=== PATIENT | female | born 1995 | race Caucasian/White ===

== ENCOUNTER 2017-10-28 16:44 | Emergency (ER) | payer OTHER ==
[~2017-10-28] VITALS: Ht 157.5 cm; Wt 60.3 kg
[~2017-10-28 16:44] MED LIST: DOXYCYCLINE100 MG PO; FLEXERIL10 MG PO; VIBRAMYCIN 100100 MG PO
[2017-10-28 17:04] VITALS: BP 111/77
--- NOTE | 2017-10-28 17:52 | ED THROAT/DENTAL COMPLAINT ---
History of Present Illness General Chief Complaint: General Adult Stated Complaint: ?STREP THROAT Source: patient, old records Exam Limitations: no limitations Vital Signs & Intake/Output Vital Signs & Intake/Output Vital Signs Date Time Temp Pulse Resp B/P B/P Pulse O2 O2 Flow FiO2 Mean Ox Delivery Rate 10/28 1704 97.6 89 20 111/77 97 Room Air Allergies Coded Allergies: No Known Allergies (10/28/17) Reconcile Medications Amoxicillin/Potassium Clav (Augmentin 875-125 Tablet) 875 MG-125 MG TABLET 1 TAB PO BID PHARYNGITIS CYCLOBENZAPRINE HCL (Flexeril) 10 MG TAB 1 TAB PO TID PRN PAIN Avoid operating motor vehicle or heavy machinery Doxycycline (Vibramycin 100 MG Cap) 100 MG CAP 1 TAB PO BID INFN Doxycycline Hyclate 100 MG CAP 1 TAB PO BID INFECTION Triage Note: TRIAGE: PT TO ER C/C SORE THROAT AND HEADACHE PAIN, ONSET THIS MORNING. STEP MOTHER HAS STREP THROAT. PRAVEEN CAMEJO AT TRIAGE FOR EVALUATION. THROAT CULTURE OBTAINED/SENT FROM TRIAGE. Triage Nurses Notes Reviewed? yes Onset: Abrupt Duration: day(s): (2), constant Timing: single episode today Injury Environment: home Severity: mild Severity Numbers: 3 No Modifying Factors: none Associated Symptoms: denies : No Patient currently breastfeeds: No HPI: 22-year-old female presents to ER complaining of a sore throat since this morning. No cough fever chills. Family member is home sick with strep throat and a sinus infection. She just returned from [place]. No difficulty swallowing no difficulty breathing no abdominal pain nausea vomiting diarrhea she is not taken anything for symptoms (Jean Campa) Past History Travel History Traveled to [place] past 21 day No Medical History Any Pertinent Medical History? see below for history Neurological: CONCUSSIONS EENT: NONE Cardiovascular: NONE Respiratory: NONE Gastrointestinal: NONE Hepatic: NONE Renal: NONE Musculoskeletal: NONE Psychiatric: NONE Endocrine: NONE Blood Disorders: NONE Cancer(s): NONE GANG SAWYER/Reproductive: NONE Surgical History Surgical History: N Psychosocial History What is your primary language Serbian Tobacco Use: Never used ETOH Use: occasional use Illicit Drug Use: denies illicit drug use Family History Hx Contributory? No (Jean Campa) Review of Systems Review of Systems Constitutional: Reports: see HPI. All Other Systems: Reviewed and Negative Comments Review of systems: See HPI, All other systems negative. Constitutional, no chills no fever, HEENT: sore throat no congestion, no ear pain Cardiovascular: No chest pain , no palpitation Skin: no rashes, no change in skin Respiratory: No dyspnea no cough no sputum GI: No nausea no vomiting, Muscle skeletal: No joint pain, no back pain Neurologic: , no headache .Heme/endocrine: No bruising Immunology: No lymphadenopathy (Jean Campa) Physical Exam Physical Exam General Appearance: well developed/nourished, no apparent distress, alert, awake Mouth/Throat: PHARYNGEAL ERYTHEMA Comments: Well-developed well-nourished patient in no apparent distress. Head/Face: Atraumatic, no maxillary/frontal sinus tenderness, no facial swelling Eyes: PERRL, EOMI, no conjunctival injection. Ear:External auditory canal and Tympanic membranes clear, no erythema Nose: atraumatic.Normal inspection: Throat: Moist mucous membranes.Pharynx normal. MILD pharyngeal erythema, NO exudate seen. No stridor/drooling or assymetry. No swelling or edema. Neck: Supple, no lymphadenopathy, FROM Back: FROM Cardiovascular: Regular rate and rhythms no murmur Respiratory: No respiratory distress. Patient speaking in full complete sentences. Breath sounds clear to auscultation bilaterally: NO W/R/R Extremities: full range of motion Neuro: awake, alert, and oriented to person, place and time. There were no obvious focal neurologic abnormalities. Skin: Warm & dry;No appreciable rash on exposed skin Psych: Mood affect normal, normal memory normal judgment. Core Measures ACS in differential dx? No Sepsis Present: No Sepsis Focused Exam Completed? No (Jean Campa) Progress Differential Diagnosis: epiglottitis, odontogenic abscess, loreta-tonsillar abscess, strep pharyngitis, MONO Plan of Care: Orders Procedure Date/time Status THROAT CULTURE W/QUICK STREP 10/28 1648 Active I discussed with the patient at length all of their results. I had an extensive conversation regarding need for close follow up with their primary care physician this week as well as return precautions. I answered all of their questions, they feel comfortable with the plan and follow-up care. I discussed with the patient/family the medications that they will receive. I gave them signs and symptoms that could indicate an adverse reaction. I have advised them to limit their activities until they can see how they respond to the medication. (Jean Campa) Departure Departure Time of Disposition: 1754 Disposition: HOME OR SELF CARE Condition: Stable Clinical Impression Primary Impression: Pharyngitis Referrals: Vannesa JONAS,Gabby Lopez (PCP/Family) Additional Instructions: AUGMENTIN DIRECTED. INTERCHANGE TYLENOL AND MOTRIN. SALT WATER GARGLES. FOLLOW UP WITH YOUR PMD, RETURN WITH ANY CONCERNS Departure Forms: Customer Survey General Discharge Information Prescriptions: Current Visit Scripts Amoxicillin/Potassium Clav (Augmentin 875-125 Tablet) 1 TAB PO BID #14 TAB (Jean Campa) PA/BOX STORAGE WORKER Co-Sign Statement Statement: ED Attending supervision documentation- I saw and evaluated the patient. I have also reviewed all the pertinent lab results and diagnostic results. I agree with the findings and the plan of care as documented in the PA's/BOX STORAGE WORKER's documentation. x I have reviewed the ED Record and agree with the PA's/BOX STORAGE WORKER's documentation. [] Additions or exceptions (if any) to the PAs/BOX STORAGE WORKER's note and plan are summarized below: [] (Sudhir JONAS,Shoaib)
[2017-10-28] MEDS ORDERED: AUGMENTIN 875-1 EACH PO (17:55)
== END 2017-10-28 18:01 ==
LOC: ERH 16:44
DX: J02.9 Acute pharyngitis, unspecified (principal)

== ENCOUNTER 2018-03-12 21:22 | Emergency (ER) | payer OTHER ==
[~2018-03-12] VITALS: Ht 157.5 cm; Wt 63.5 kg
[~2018-03-12 21:22] MED LIST changes: +AUGMENTIN 875-1 EACH PO
[2018-03-12 21:29] VITALS: BP 113/69
--- NOTE | 2018-03-12 22:00 | ED GENERAL ADULT ---
History of Present Illness General Chief Complaint: Sore Throat, Dental Pain Stated Complaint: MOUTH PAIN Source: patient Exam Limitations: no limitations Vital Signs & Intake/Output Vital Signs & Intake/Output Vital Signs Date Time Temp Pulse Resp B/P B/P Pulse O2 O2 Flow FiO2 Mean Ox Delivery Rate 03/12 2229 Room Air 03/12 2129 96.4 77 20 113/69 98 Room Air Allergies Coded Allergies: No Known Allergies (10/28/17) Reconcile Medications Amoxicillin/Potassium Clav (Augmentin 875-125 Tablet) 875 MG-125 MG TABLET 1 TAB PO BID PHARYNGITIS CYCLOBENZAPRINE HCL (Flexeril) 10 MG TAB 1 TAB PO TID PRN PAIN Avoid operating motor vehicle or heavy machinery Doxycycline (Vibramycin 100 MG Cap) 100 MG CAP 1 TAB PO BID INFN Doxycycline Hyclate 100 MG CAP 1 TAB PO BID INFECTION Triage Note: PT HERE WITH C/O MOUTH PAIN. PT REPORTS THAT SHE HAS PAIN UNDER HER TONGUE ON THE LEFT SIDE. PT THOUGHT SHE HAD A CANKER SORE BUT WHEN SHE LOOKED SHE NOTICED SWELLING TO AREA. PT REPORTS EATING SUNFLOWER SEEDS 2-3 DAYS AGO AND THATS WHEN THE PAIN BEGAN. Triage Nurses Notes Reviewed? yes Onset: Gradual Duration: day(s): Timing: constant : No Patient currently breastfeeds: No HPI: 22-year-old otherwise healthy female presenting with pain to her left lower gums status post eating sunflower seeds 2-3 days ago. Patient states that she was eating sunflower seeds she began to feel gradual onset of the pain. She thought that she had either call her problems with the sunflower seed or was developing a canker sore and was waiting to see if it would heal on its own. When she looked at her gums today they appeared swollen and she was concerned, therefore she presented to the emergency department for evaluation. Denies tongue pain, sore throat, tooth pain, difficulty swallowing. (Nancy Burch) Past History Travel History Traveled to [place] past 21 day No Medical History Any Pertinent Medical History? see below for history Neurological: CONCUSSIONS EENT: NONE Cardiovascular: NONE Respiratory: NONE Gastrointestinal: NONE Hepatic: NONE Renal: NONE Musculoskeletal: NONE Psychiatric: NONE Endocrine: NONE Blood Disorders: NONE Cancer(s): NONE MEDICAL ASSISTANT SUPERVISOR/Reproductive: NONE Surgical History Surgical History: N Psychosocial History What is your primary language Kuwaiti Tobacco Use: Never used ETOH Use: occasional use Illicit Drug Use: denies illicit drug use Family History Hx Contributory? No (Nancy Burch) Review of Systems Review of Systems Constitutional: Reports: no symptoms. EENTM: Reports: see HPI. Respiratory: Reports: no symptoms. Cardiovascular: Reports: no symptoms. GI: Reports: no symptoms. Genitourinary: Reports: no symptoms. Musculoskeletal: Reports: no symptoms. Skin: Reports: no symptoms. Neurological/Psychological: Reports: no symptoms. Hematologic/Endocrine: Reports: no symptoms. Immunologic/Allergic: Reports: no symptoms. All Other Systems: Reviewed and Negative (Nancy Burch) Physical Exam Physical Exam General Appearance: well developed/nourished, no apparent distress, alert, awake , comfortable Head: atraumatic, normal appearance Eyes: Bilateral: normal appearance. Ears, Nose, Throat: on exam of the oral cavity there are no aphthous ulcers or gingival lacerations. No gingivitis, gingival abscess, or erythema. No tenderness to palpation with tooth thrust. Patient has mild tenderness to palpation of the gingiva on the inner left lower gingiva. Neck: normal inspection Respiratory: normal breath sounds, lungs clear Cardiovascular: regular rate/rhythm Gastrointestinal: soft, non-tender Back: normal inspection Extremities: normal inspection Neurologic/Psych: awake, alert, oriented x 3, normal gait, normal mood/affect Skin: intact, normal color, warm/dry Core Measures ACS in differential dx? No CVA/TIA Diagnosis: No Sepsis Present: No Sepsis Focused Exam Completed? No (Nancy Burch) Progress Differential Diagnoses I considered the following diagnoses in my evaluation of the patient: [Foreign body versus gingival laceration versus aphthous ulcer] Plan of Care: Patient has a benign exam with no obvious source for the etiology of her pain. It is possible that she has a retained foreign body from the sunflower seeds underneath the gingiva. She was instructed to follow up with her dentist tomorrow for reevaluation. Given strict return precautions. Initial ED EKG: none (Nancy Burch) Departure Departure Disposition: HOME OR SELF CARE Condition: Stable Clinical Impression Primary Impression: Pain of gingiva Referrals: Vannesa JONAS,Gabby Lopez (PCP/Family) Additional Instructions: Follow-up with your dentist tomorrow for reevaluation. Return to the emergency department for any normal worsening symptoms. Departure Forms: Customer Survey General Discharge Information (Nancy Burch) PA/GARMENT STEAMER Co-Sign Statement Statement: ED Attending supervision documentation- I saw and evaluated the patient. I have also reviewed all the pertinent lab results and diagnostic results. I agree with the findings and the plan of care as documented in the PA's/GARMENT STEAMER's documentation. x I have reviewed the ED Record and agree with the PA's/GARMENT STEAMER's documentation. [] Additions or exceptions (if any) to the PAs/GARMENT STEAMER's note and plan are summarized below: [] (Sudhir JONAS,Shoaib) Critical Care Note Critical Care Note Critical Care Time: non-applicable (Nancy Burch)
== END 2018-03-12 22:29 ==
LOC: ERH 21:22
DX: K13.79 Other lesions of oral mucosa (principal)
CPT/HCPCS: 99282